=== PATIENT | male | born 1990 | race Caucasian/White ===

== ENCOUNTER 2016-10-26 03:15 | Emergency (ER) | payer OTHER ==
[2016-10-26] MEDS ORDERED: IBUPROFEN 400 MG TABLET (FP) PO ONE ×2 (03:45→03:51)
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
[2016-10-26 03:46] VITALS: TEMP 98.2; BMI 50.3
[2016-10-26 05:34] VITALS: BP 139/98; PULSE 86
== END 2016-10-26 05:34 | disposition home or self-care (01) ==
LOC: JER 03:15
DX: M51.26 Other intervertebral disc displacement, lumbar region (principal); V49.49XA Driver injured in collision with other motor vehicles in traffic accident, initial encounter; Y92.414 Local residential or business street as the place of occurrence of the external cause; Y99.8 Other external cause status; I10 Essential (primary) hypertension; E11.9 Type 2 diabetes mellitus without complications; Z79.84 Long term (current) use of oral hypoglycemic drugs
CPT/HCPCS: 73700-TC-RT; 99281-25